=== PATIENT | female | born 1995 | race Caucasian/White ===

== ENCOUNTER 2025-01-24 06:58 | Emergency (ER) | payer OTHER, SELFPAY ==
[2025-01-24 07:02] VITALS: BP 137/92
[2025-01-24] MEDS: NSS 500 IV (08:20)
[2025-01-24 08:43] LABS: % Basophils 0.4 % (0-2); % Eosinophils 0.3 % (0-6); % Immature Granulocytes 0.1 % (0-0.5); % Monocytes 7.7 % (1.7-9.3); % Neutrophils 67.5 % (42.2-75.2); Absolute Lymphocytes 1.6 10^3/uL (1.2-3.4); Absolute Monocytes 0.5 10^3/uL (0.1-0.6); Absolute Neutrophils 4.5 10^3/uL (1.4-6.5); Hematocrit 40.2 % (37.0-47.0); Hemoglobin 13.4 g/dL (12.0-16.0); Mean Corp Hgb Conc. 33.3 g/dL (33.0-37.0); Mean Corpuscular Hgb 28.6 pg (27.0-31.0); Mean Corpuscular Volume 85.9 fL (81.0-99.0); Mean Platelet Volume 11.3 fL (7.4-10.4); Nucleated Red Blood Cells % 0 %; Platelet Count 175 10^3/uL (130-400); Red Blood Cell Count 4.68 10^6/uL (4.20-5.40); Red Cell Dist. Width 13.1 % (11.5-14.5); White Blood Cell Count 6.7 10^3/uL (4.8-10.8)
[2025-01-24 08:50] LABS: HCG, Serum Qualitative Screen Negative
[2025-01-24 08:51] LABS: Blood Urea Nitrogen 7 mg/dl (7-17); Calcium 9.2 mg/dl (8.4-10.2); Carbon Dioxide 31 mmol/L (22-30); Chloride 106 mmol/L (98-107); Glucose 87 mg/dl (70-99); Potassium 3.9 mmol/L (3.5-5.1); Sodium 142 mmol/L (135-145); eGFR > 60.00
[2025-01-24 09:18] LABS: Erythrocyte Sed Rate 10 mm/hour (0-20)
[2025-01-24] MEDS: TORADOL 15 MG IV (10:51)
--- NOTE | 2025-01-24 11:25 | ED.GENMED ---
History of Present Illness
General
Chief Complaint: Ear Problem
Source: patient
Exam Limitations: none
Time Seen by Provider: 01/24/25 07:27
History of Present Illness
History of Present Illness:
30-year-old female started with right ear pain last evening. No trauma. Ongoing pain overnight. No throat pain no facial pain no neck pain no neurologic symptoms. No fever. Pain is intermittently sharp in nature.
Past History
Past History
ED Past Medical History: IDDM and Other (wolfram sx)
ED Past Surgical History: Tonsilectomy
Review of Systems
Review of Systems
All Other Systems: Not applicable
Constitutional: Denies fever
Neurological: Denies dizzy, headache, weakness or numbness
Phy Exam
Physical Exam
Physical Exam:
GENERAL: Alert and oriented in no apparent distress
EYE: Orbits normal. Patient is legally blind
NECK: Supple, no significant adenopathy.
ENT: Pharynx without erythema. Teeth normal. TMs clear. No rash.
CARDIAC: Regular rate and rhythm without any obvious murmurs.
LUNGS: Clear breath sounds,normal
NEUROLOGICAL: Alert and oriented , grossly non-focal
SKIN: Warm and dry, no rash around the ear
PSYCH: Normal and appropriate interaction.
Course
Orders/Labs/Results
Orders:
Orders
01/24/25 07:37
IV Insert/Care/Rem.- Treatment PRN
0.9% Sodium Chloride 500 ml [Nss] 500 ml IV BOLUS
Test Result ONCE
01/24/25 07:38
CT Head W/o Iv Contrast Urgent
Comment:
Reason For Exam: Right facial/ear pain
CT Neck Angio W/wo Iv Contrast Urgent
Comment:
Reason For Exam: Right facial/ear pain
01/24/25 08:20
Basic Metabolic Panel Urgent
Complete Blood Count/With Diff Urgent
Erythrocyte Sed Rate Urgent
HCG, Serum Qualitative Screen Urgent
01/24/25 10:40
Ketorolac [Toradol] 15 mg IV NOW STA
Abnormal Lab Results
01/24/25
08:20
MPV 11.3 H fL
(7.4-10.4)
Carbon Dioxide 31 H mmol/L
(22-30)
01/24/25 08:20
01/24/25 08:20
Vital Signs
Initial and Last Documented VS:
Initial Vital Signs
Temp Pulse Resp BP Pulse Ox
98.4 F 95 16 137/92 97
01/24/25 07:02 01/24/25 07:02 01/24/25 07:02 01/24/25 07:02 01/24/25 07:02
Last Documented Vital Signs
Temp Pulse Resp BP Pulse Ox
98.4 F 90 16 113/70 97
01/24/25 07:02 01/24/25 11:56 01/24/25 11:56 01/24/25 11:56 01/24/25 11:56
MDM/Problems Addressed
Differential Diagnosis Includes:
Nontraumatic right ear pain. No mastoid tenderness. History of sinus issues. Nothing obvious in the canal or drum to support the explanation for this ear pain. It seems sharp in nature and at times gets more severe. Patient is nontoxic. CT
angio of the neck done to rule out dissection as an etiology. I do not feel this is an intracranial issue. At this time nonspecific neuralgia. Will cover with antibiotics pain management follow-up
*Radiology
Radiology exam reviewed: radiology read reviewed (No acute findings)
*Pulse Oximetry
Patient hypoxic: no
*Critical Care Note
Total Time (30-74mins, 75-104mins- exclusive of procedures): Not Applicable
ED Attending Note
-
Portions of this chart may have been created with voice recognition software.� Occasional wrong word or��sound alike� substitutions may have occurred due to the inherent limitations of voice recognition software.
Discharge Plan
Departure
Patient Disposition: Home (Routine Discharge)
Date of Disposition: 01/24/25
Time of Disposition: 11:29
Patient with high blood pressure during this ER visit?: Yes
Discharge Problem:
Right ear auralgia
Instructions: BLOOD PRESSURE
Prescriptions:
New
amoxicillin 500 mg capsule
500 mg PO TID 10 Days Qty: 30 0RF
Referrals:
Goldy Gallardo, [Family Provider, Family Practice] - Follow up in 2-3 days
Activity Restrictions/Additional Instructions:
Call your ENT doctor for close follow-up
Advil or Motrin for pain. You can also add Tylenol
Return sooner or immediately with increasing pain swelling fever general headache or any other concerning symptoms
The prescription was sent to your pharmacy
Interventions
Interventions:
*Risk Screen - Suicide Last Done: 01/24/25 07:02
*ED COVID-19 Vaccine History Last Done: 01/24/25 07:02
Discharge Date and Time
Print Language: MALTESE
[2025-01-24 11:56] VITALS: BP 113/70
== END 2025-01-24 12:00 | disposition home or self-care (01) ==
LOC: EMR 06:58
PROVIDERS: EMERGENCY PHYSICIAN Emergency Medicine; FAMILY PHYSICIAN Family Medicine
DX: H92.01 Otalgia, right ear (principal); R03.0 Elevated blood-pressure reading, without diagnosis of hypertension
CPT/HCPCS: 99285; 96374; 96361; 70450; 70498; 80048; 84703; 85025; 85652; Q9967